=== PATIENT | female | born 1980 | race Caucasian/White ===

== ENCOUNTER 2017-11-06 02:46 | Emergency (ER) | payer SELFPAY ==
[2017-11-06 03:18] LABS: Absolute Monocytes 0.7 K/uL (0.1-1.3); Basophils % 0.5 % (0-1.3); Eosinophils % 1.7 % (0-4.4); Hematocrit 39.9 % (36.0-45.0); Lymphocytes % 22.9 % (15.3-44.8); MCH 29.7 pg (27.0-35.0); MCV 87.2 fL (80-100); MPV 8.8 fL (7.6-11.3); Monocytes % 7.8 % (3.3-12.3); RBC Red Blood Cell Count 4.57 M/uL (3.86-4.86)
[2017-11-06] MEDS ORDERED: LORazepam 2 MG/ML VIAL ONE (03:26)
[2017-11-06 03:27] LABS: Protime INR 0.99
[2017-11-06 03:30] LABS: Glucose Level 121 mg/dL (65-120)
[2017-11-06 03:36] LABS: Albumin 4.3 g/dL (3.2-5.5); Alkaline Phosphatase 73 IU/L (42-121); BUN Blood Urea Nitrogen 16 mg/dL (6-20); Bilirubin Direct 0.2 mg/dL (0-0.2); Bilirubin Total 0.7 mg/dL (0.3-1.2); Protein, Total 7.7 g/dL (6.0-8.3)
[2017-11-06 03:38] LABS: ALT/SGPT 11 IU/L (10-60); AST/SGOT 23 IU/L (10-42); Bicarbonate 20 mEq/L (21-31); Potassium 4.1 mEq/L (3.6-5.0); Sodium Level 140 mEq/L (135-145)
[2017-11-06 03:39] LABS: Alcohol Serum/Plasma < 10 mg/dl; Salicylates Level < 4.0 mg/dl (<30)
[2017-11-06] MEDS ORDERED: ZIPRASIDONE MESYLA 20 MG/VIAL IM ONE (04:00)
[2017-11-06] MEDS ORDERED: WATER FOR INJ,STERILE 10 ML ONE (04:00)
[2017-11-06] MEDS ORDERED: NA CHLORIDE 0.9% 1,000 ML ONE (04:03)
--- NOTE | 2017-11-06 05:01 | EKG ---
Test Date: 2017-11-06 Test Time: 03:19:32 Skin Peeling Machine Operator: ABDULAZIZ MEASUREMENT RESULTS: Intervals: Rate: 101 NV: 144 QRSD: 70 QT: 342 QTc: 443 [place]: P: 66 NV: 144 QRS: 34 T: 29 INTERPRETIVE STATEMENTS: Sinus tachycardia Otherwise normal ECG Compared to ECG 11/13/2012 09:35:37 Sinus rhythm no longer present Electronically Signed On 11-06-17 05:00:45 CDT by Cristian Medeiros
[2017-11-06 05:52] LABS: Barbiturates NEGATIVE; Benzodiazepines POSITIVE; Cocaine NEGATIVE; Opiates NEGATIVE; Phencyclidine NEGATIVE; THC Cannibis NEGATIVE
[2017-11-06 05:57] LABS: METHAMPHETAM POSITIVE
[2017-11-06 06:06] LABS: Urine Blood NEGATIVE (NEG); Urine Glucose NEGATIVE (NEG); Urine Protein NEGATIVE (NEG); Urine Specific Gravity 1.015 (1.005-1.030); Urine pH 5.5 (5.0-7.0)
[2017-11-06] MEDS ORDERED: NICOTINE 21 MG/PAT TD ONE (11:06)
--- NOTE | 2017-11-06 12:13 | ER ---
Nurse's Notes [facility] Name: Dariela Rosario Age: 37 yrs Sex: Female : 1980 Arrival Date: 11/06/2017 Time: 02:56 Bed 17 Private MD: Diagnosis: Hallucinations, unspecified-Auditory Presentation: 11/06 02:57 Presenting complaint: EMS states: "Patient having audible hallucinations, patient bs1 hearing her son and mother calling her for help, muffled/trapped underneath the house, says that everyone is out to get her and is being paranoid, patient has been off of meds.". Transition of care: patient was not received from another setting of care. Onset of symptoms was November 06, 2017. Care prior to arrival: None. 02:57 Method Of Arrival: EMS: [facility] bs1 02:57 Acuity: STEFANI 2 bs1 NET TRAINER: 04:18 LMP N/A - Irregular menses bs1 Historical: - Allergies: 03:09 No Known Allergies; bs1 - Home Meds: 03:09 Risperdal Oral [Active]; Klonopin Oral [Active]; Ambien Oral [Active]; bs1 - PMHx: 03:09 Bipolar disorder; bs1 - PSHx: 03:09 c section; Lumpectomy; bs1 - Immunization history:: Adult Immunizations not up to date. - Social history:: Smoking status: Patient uses tobacco products, smokes one pack cigarettes per day. Patient uses alcohol, street drugs, Methamphetamine (Meth). Screenin:11 Abuse screen: Denies threats or abuse. Nutritional screening: No deficits noted. bs1 Tuberculosis screening: No symptoms or risk factors identified. Fall Risk None identified. Assessment: 03:00 General: Appears uncomfortable, unkempt, Behavior is agitated, anxious, restless. Pain: bs1 Denies pain. Neuro: Level of Consciousness is awake, alert, Oriented to person, place, Administrative Project Coordinator are equal bilaterally Moves all extremities. Gait is steady, Speech is normal. Cardiovascular: Denies chest pain, shortness of breath, Heart tones S1 S2 Capillary refill < 3 seconds Patient's skin is warm and dry. Cardiovascular:. Respiratory: Airway is patent Trachea midline Respiratory effort is even, unlabored, Respiratory pattern is regular, symmetrical. Respiratory: Breath sounds are clear bilaterally. GI: No deficits noted. No signs and/or symptoms were reported involving the gastrointestinal system. : No deficits noted. No signs and/or symptoms were reported regarding the genitourinary system. EENT: No deficits noted. No signs and/or symptoms were reported regarding the EENT system. Derm: No deficits noted. No signs and/or symptoms reported regarding the dermatologic system. Musculoskeletal: Circulation, motion, and sensation intact. Capillary refill < 3 seconds, Range of motion: intact in all extremities. 03:12 Reassessment: Received a verbal order from Dr ham to medicate patient with Ativan 2 IM ao and converted to IV if patient lets us get and IV. Patient has been medicated with Ativan IV. 03:30 Reassessment: Patient is on the phone face timing a "iliana friend", iliana states "Baby bs1 what's going on, I want to speak to the nurse, let me speak to her now.", patient states to the man on the phone "this is the last time you are going to see me because you wont come up here. Patient hung up the phone, nurse then asked patient if she had any thoughts of suicide and if she has a plan to harm herself or others. Patient states "No, I think you guys are going to kill me, I don't want to hurt myself.". 03:45 Reassessment: Patient became very agitated, screaming out, walked out of the room down bs1 the hallway to the Dr Rivera, patient states "I hear my son, I know he's here you are lying to me." Dr Ham gave order to give 20mg Geodon IM x1 now. 04:45 Reassessment: Patient appears in no apparent distress at this time. Patient and/or bs1 family updated on plan of care and expected duration. Pain level reassessed. Patient is alert, oriented x 3, equal unlabored respirations, skin warm/dry/pink. Patient sleeping, boyfriend at bedside. No further needs at this time. 05:45 Reassessment: Patient appears in no apparent distress at this time. Patient and/or bs1 family updated on plan of care and expected duration. Pain level reassessed. Patient is alert, oriented x 3, equal unlabored respirations, skin warm/dry/pink. [facility] at bedside assessing patient. 06:13 Reassessment: Patient appears in no apparent distress at this time. No changes from bs1 previously documented assessment. Patient and/or family updated on plan of care and expected duration. Pain level reassessed. Patient is alert, oriented x 3, equal unlabored respirations, skin warm/dry/pink. 07:00 Reassessment: Pt laying in bed with eyes closed, respirations even and unlabored, no jl7 signs of distress noted at this time. Boyfriend remains at bedside. 07:30 Reassessment: Boyfriend requesting to be notified if pt leaves and reports he will jl7 return after showering. Vick Leach [phone]. 07:40 Reassessment: Pt sat up in bed and requested a breakfast tray. Tray ordered. jl7 08:10 Reassessment: Tray delivered, held outside room at this time, pt laying in bed with jl7 eyes closed, respiration even and unlabored, no signs of distress noted at this time. 09:14 Reassessment: Patient appears in no apparent distress at this time. Patient and/or em family updated on plan of care and expected duration. Pain level reassessed. Patient is alert, oriented x 3, equal unlabored respirations, skin warm/dry/pink. pt resting comfortably in bed. 10:26 Reassessment: Patient appears in no apparent distress at this time. Patient and/or em family updated on plan of care and expected duration. Pain level reassessed. Patient is alert, oriented x 3, equal unlabored respirations, skin warm/dry/pink. pt eating breakfast, tolerated well. 10:45 Reassessment: called report to Wanda Miguel RN at [facility]. em 11:36 Reassessment: Patient appears in no apparent distress at this time. Patient is alert, em oriented x 3, equal unlabored respirations, skin warm/dry/pink. 12:28 Reassessment: pt eating lunch, request medications because she hears her mom next door, em Dr. Orozco notified. Psych: 03:31 Subjective: Patient's mood is sad, angry, irritable, Delusions are denied, bs1 Hallucinations are auditory. Objective: Patient is defensive, irritable, using poor eye contact, restless, suspicious, Speech is rambling, Affect is inappropriate. Interventions: Patient placed in hospital gown. Searched person for dangerous items. Suicide Risk Assessment: Sad Person Scale: Sex of patient: Female: Score 0 points. Age of patient: Score 0 point if patient falls outside of specified age parameters. Depression: Score 0 point if signs of depression are not present. Previous Attempt: Score 0 point if patient has not previously attempted suicide. Substance Abuse: Score 1 point if patient abuses alcohol or drugs. Rational Thinking: Score 1 point if patient is lacking rational thinking. Social Support: Score 1 point if social support is lacking and/or unavailable. Organized Plan: Score 0 if patient did not have an organized plan in place. Relationship: Score 0 point if patient has a spouse or domestic partner. Chronic Sickness: Score 0 point if patient does not have a chronic illness, debilitating, or severe disorder. TOTAL POINTS: If total points are 3-4, proposed clinical action is close follow-up/consider hospitalization. Safety Checks: Personal items have not been removed. Door is open. No visitors are present at this time. Patient uses Patient uses methamphetamines Patient uses tobacco. 07:00 Safety Checks: Personal items have been removed. Door is open. Visitors are present. jl7 07:15 Safety Checks: Personal items have been removed. Door is open. Visitors are present. jl7 07:30 Safety Checks: Personal items have been removed. Door is open. Visitors are present. jl7 07:45 Safety Checks: Personal items have been removed. Door is open. No visitors are present jl7 at this time. 08:00 Safety Checks: Personal items have been removed. Door is open. No visitors are present jl7 at this time. 08:15 Safety Checks: Personal items have been removed. Door is open. No visitors are present jl7 at this time. 08:30 Safety Checks: Personal items have been removed. Door is open. No visitors are present jl7 at this time. 08:45 Safety Checks: Personal items have been removed. Door is open. No visitors are present jl7 at this time. 09:00 Safety Checks: Personal items have been removed. Door is open. No visitors are present jl7 at this time. 09:00 Safety Checks: Personal items have been removed. Door is open. No visitors are present iw at this time. Commitment: Patient will be a voluntary commitment. 09:15 Safety Checks: Personal items have been removed. Door is open. No visitors are present iw at this time. 09:30 Safety Checks: Personal items have been removed. Door is open. No visitors are present iw at this time. 09:45 Safety Checks: Personal items have been removed. Door is open. No visitors are present iw at this time. 10:00 Safety Checks: Personal items have been removed. Door is open. No visitors are present iw at this time. 10:15 Safety Checks: Personal items have been removed. Door is open. No visitors are present iw at this time. 10:30 Safety Checks: Personal items have been removed. Door is open. No visitors are present iw at this time. 10:45 Safety Checks: Personal items have been removed. Door is open. No visitors are present iw at this time. 11:00 Safety Checks: Personal items have been removed. Door is open. No visitors are present iw at this time. 11:15 Safety Checks: Personal items have been removed. Door is open. No visitors are present iw at this time. 11:30 Safety Checks: Personal items have been removed. Door is open. No visitors are present iw at this time. 11:45 Safety Checks: Personal items have been removed. Door is open. No visitors are present em at this time. 12:00 Safety Checks: Personal items have been removed. Door is open. No visitors are present em at this time. 12:15 Safety Checks: Personal items have been removed. Door is open. No visitors are present em at this time. 12:30 Safety Checks: Personal items have been removed. Door is open. No visitors are present em at this time. 12:45 Safety Checks: Personal items have been removed. Door is open. No visitors are present em at this time. 13:00 Safety Checks: Personal items have been removed. Door is open. No visitors are present em at this time. Vital Signs: 02:57 BP 127 / 85; Pulse 104; Resp 18; Temp 97.9(O); Pulse Ox 98% on R/A; Weight 77.11 kg; bs1 Height 5 ft. 2 in. (157.48 cm); Pain 0/10; 05:21 BP 107 / 85; Pulse 87; Resp 18; Pulse Ox 99% on R/A; mt 06:44 BP 104 / 74; Pulse 89; Resp 16; Pulse Ox 97% on R/A; bs1 07:24 BP 105 / 74; Pulse 78; Resp 14 S; Pulse Ox 97% on R/A; jl7 11:20 BP 123 / 73; Pulse 71; Resp 18; Temp 97.5(TE); Pulse Ox 100% on R/A; Pain 0/10; em 02:57 Body Mass Index 31.09 (77.11 kg, 157.48 cm) bs1 ED Course: 02:56 Patient arrived in ED. bs1 02:56 Maik Ham MD is Attending Physician. pkl 02:57 Keyonna Tomas, RN is Primary Nurse. bs1 03:07 Triage completed. bs1 03:12 Arm band placed on left wrist. bs1 03:13 Patient has correct armband on for positive identification. Placed in gown. Bed in low bs1 position. Call light in reach. Side rails up X 1. 03:30 Inserted saline lock: 20 gauge in right antecubital area, using aseptic technique. bs1 07:05 Report given to MENG Puga. bs1 07:09 Primary Nurse role handed off by Keyonna Tomas RN jl7 07:09 Edd Villarreal, MENG is Primary Nurse. jl7 10:26 Huber Waters PA is PHCP. cp 10:52 No provider procedures requiring assistance completed. em 13:14 IV discontinued, intact, bleeding controlled, No redness/swelling at site. Pressure em dressing applied. Administered Medications: 03:11 Drug: Ativan 2 mg {Note: Given IV as ordered By Dr Ham.} Route: IM; Site: Other; ao 09:15 Follow up: Response: No adverse reaction em 03:47 Drug: Geodon 20 mg Route: IM; Site: right deltoid; bs1 04:11 Follow up: Response: No adverse reaction bs1 10:50 Drug: Nicotine 21 mg/24 hr 1 patches {Note: applied to right side of back.} Route: em Transdermal; Site: affected area; 11:57 Follow up: Response: No adverse reaction em Outcome: 12:12 ER care complete, transfer ordered by MD. cp 13:13 Transferred by ground EMS Transfer form completed. em 13:13 Condition: good 13:13 Instructed on the need for transfer, Demonstrated understanding of instructions. 13:17 Patient left the ED. em Signatures: Maik Ham MD MD pkl Donaldo Nixon, SCREEN STRETCHER SCREEN STRETCHER em Yvette Mauricio, RN Huber Davila PA PA cp Ortiz, Alex, RN RN Edd Quiroz RN RN jl7 Otilia Vaughn mt, Brittany RN RN bs1 Corrections: (The following items were deleted from the chart) 03:29 02:57 BP 127 / 85; Pulse 104bpm; Resp 18bpm; Pulse Ox 98% RA; 77.11 kg; Height 5 ft. 2 bs1 in.; BMI: 31.0; Pain 0/10; bs1 04:09 03:31 Suicide Risk Assessment: Sad Person Scale: Sex of patient: Female: Score 0 bs1 points. Age of patient: Score 0 point if patient falls outside of specified age parameters. Rational Thinking: Score 0 point if patient has rational thinking. bs1 04:09 03:31 Subjective: Patient's mood is sad, angry, irritable, Delusions are denied, bs1 Hallucinations are auditory, bs1
--- NOTE | 2017-11-06 12:13 | EDPHYS ---
Physician Documentation [facility] Name: Dariela Rosario Age: 37 yrs Sex: Female : 1980 Arrival Date: 11/06/2017 Time: 02:56 Bed 17 Private MD: ED Physician Maik Donovan HPI: 11/06 03:31 This 37 yrs old Female presents to ER via EMS with complaints of Psych pkl Problem. 03:31 The patient presents to the emergency department with paranoia, psychosis, has pkl experienced auditory hallucinations, Hearing voices that someone is trying to hurt her and her son. 03:31 Onset: The symptoms/episode began/occurred 3 week(s) ago, and became worse today. 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 - Social history:: Smoking status: Patient uses tobacco products, smokes one pack cigarettes per day. Patient uses alcohol, street drugs, Methamphetamine (Meth). ROS: 03:31 Eyes: Negative for injury, pain, redness, and discharge, ENT: Negative for injury, pkl pain, and discharge, Neck: Negative for injury, pain, and swelling, Cardiovascular: Negative for chest pain, palpitations, and edema, Respiratory: Negative for shortness of breath, cough, wheezing, and pleuritic chest pain, Abdomen/GI: Negative for abdominal pain, nausea, vomiting, diarrhea, and constipation, Back: Negative for injury and pain, : Negative for injury, bleeding, discharge, and swelling, MS/Extremity: Negative for injury and deformity, Skin: Negative for injury, rash, and discoloration, Neuro: Negative for headache, weakness, numbness, tingling, and seizure. 03:31 Psych: Positive for auditory hallucinations. Exam: 03:31 Head/Face: Normocephalic, atraumatic. Eyes: Pupils equal round and reactive to light, pkl extra-ocular motions intact. Lids and lashes normal. Conjunctiva and sclera are non-icteric and not injected. Cornea within normal limits. Periorbital areas with no swelling, redness, or edema. ENT: Nares patent. No nasal discharge, no septal abnormalities noted. Tympanic membranes are normal and external auditory canals are clear. Oropharynx with no redness, swelling, or masses, exudates, or evidence of obstruction, uvula midline. Mucous membranes moist. Neck: Trachea midline, no thyromegaly or masses palpated, and no cervical lymphadenopathy. Supple, full range of motion without nuchal rigidity, or vertebral point tenderness. No Meningismus. Chest/axilla: Normal chest wall appearance and motion. Nontender with no deformity. No lesions are appreciated. Cardiovascular: Regular rate and rhythm with a normal S1 and S2. No gallops, murmurs, or rubs. Normal PMI, no JVD. No pulse deficits. Respiratory: Lungs have equal breath sounds bilaterally, clear to auscultation and percussion. No rales, rhonchi or wheezes noted. No increased work of breathing, no retractions or nasal flaring. Abdomen/GI: Soft, non-tender, with normal bowel sounds. No distension or tympany. No guarding or rebound. No evidence of tenderness throughout. Back: No spinal tenderness. No costovertebral tenderness. Full range of motion. Skin: Warm, dry with normal turgor. Normal color with no rashes, no lesions, and no evidence of cellulitis. MS/ Extremity: Pulses equal, no cyanosis. Neurovascular intact. Full, normal range of motion. Neuro: Awake and alert, GCS 15, oriented to person, place, time, and situation. Cranial nerves II-XII grossly intact. Motor strength 5/5 in all extremities. Sensory grossly intact. Cerebellar exam normal. Normal gait. 03:31 Psych: Behavior/mood is anxious, depressed, Affect is animated, Delusions/hallucinations are present and described as hearing voices that someone is trying to hurt her and her son. Vital Signs: 02:57 BP 127 / 85; Pulse 104; Resp 18; Temp 97.9(O); Pulse Ox 98% on R/A; Weight 77.11 kg; bs1 Height 5 ft. 2 in. (157.48 cm); Pain 0/10; 05:21 BP 107 / 85; Pulse 87; Resp 18; Pulse Ox 99% on R/A; mt 06:44 BP 104 / 74; Pulse 89; Resp 16; Pulse Ox 97% on R/A; bs1 07:24 BP 105 / 74; Pulse 78; Resp 14 S; Pulse Ox 97% on R/A; jl7 11:20 BP 123 / 73; Pulse 71; Resp 18; Temp 97.5(TE); Pulse Ox 100% on R/A; Pain 0/10; em 02:57 Body Mass Index 31.09 (77.11 kg, 157.48 cm) bs1 MDM: 02:57 Patient medically screened. pkl 05:53 Data reviewed: vital signs, nurses notes, lab test result(s), EKG. pkl 11/06 03:05 Order name: Acetaminophen; Complete Time: 03:53 ao 11/06 03:05 Order name: Basic Metabolic Panel; Complete Time: 03:53 ao 11/06 03:05 Order name: CBC with Diff; Complete Time: 03:53 ao 11/06 03:05 Order name: ETOH Level; Complete Time: 03:53 ao 11/06 03:05 Order name: Hepatic Function; Complete Time: 03:53 ao 11/06 03:05 Order name: PT-INR; Complete Time: 03:53 ao 11/06 03:05 Order name: Ptt, Activated; Complete Time: 03:53 ao 11/06 03:05 Order name: Salicylate; Complete Time: 03:53 ao 11/06 03:05 Order name: Urine Drug Screen; Complete Time: 05:58 ao 11/06 05:43 Order name: Urine Dipstick--Ancillary (enter results); Complete Time: 06:38 em1 11/06 05:43 Order name: Urine --Ancillary (enter results); Complete Time: 06:38 em1 11/06 03:05 Order name: EKG; Complete Time: 03:05 ao 11/06 03:05 Order name: EKG - Nurse/Tech; Complete Time: 03:17 ao 11/06 03:05 Order name: IV Saline Lock; Complete Time: 03:11 ao 11/06 03:05 Order name: Labs collected and sent; Complete Time: 03:11 ao 11/06 03:05 Order name: Urine Dipstick-Ancillary (obtain specimen); Complete Time: 05:41 ao 11/06 07:42 Order name: Diet Regular; Complete Time: 07:42 jl7 11/06 11:58 Order name: Diet Regular; Complete Time: 11:58 em Administered Medications: 03:11 Drug: Ativan 2 mg {Note: Given IV as ordered By Dr Donovan.} Route: IM; Site: Other; ao 09:15 Follow up: Response: No adverse reaction em 03:47 Drug: Geodon 20 mg Route: IM; Site: right deltoid; bs1 04:11 Follow up: Response: No adverse reaction bs1 10:50 Drug: Nicotine 21 mg/24 hr 1 patches {Note: applied to right side of back.} Route: em Transdermal; Site: affected area; 11:57 Follow up: Response: No adverse reaction em Disposition: 11/06/17 12:12 Transfer ordered to [facility]. Diagnosis is Hallucinations, unspecified - Auditory. - Reason for transfer: Higher level of care. - Accepting physician is DR Donovan. - Condition is Stable. - Problem is new. - Symptoms have improved. Signatures: Dispatcher [employer] Maik Moncada MD MD pkl Donaldo Nixon, CONVERSION DEVELOPER CONVERSION DEVELOPER em Huber Waters PA PA cp Ortiz, Alex, RN RN ao Keyonna Tomas RN RN bs1 Corrections: (The following items were deleted from the chart) 03:12 03:05 Urine Dipstick-Ancillary ordered. ao ao 03:35 03:31 Onset: The symptoms/episode began/occurred today, 3 week(s) ago, and became worse pkl pkl
== END 2017-11-06 13:17 ==
LOC: ER 02:46
DX: R44.0 Auditory hallucinations (principal); F31.9 Bipolar disorder, unspecified; F17.210 Nicotine dependence, cigarettes, uncomplicated
CPT/HCPCS: 36415; 80048; 80076; 80307; 80320; 80329; 81003; 81025; 85025; 85610; 85730; 93005; 96372; 99285; J3486; J7030

== ENCOUNTER 2018-06-08 03:56 | Emergency (ER) | payer SELFPAY ==
--- OUTSIDE RECORDS SUMMARY | 2018-06-08 03:58 | XMS REPORT ---
:1980 [facility] [address] [place] [address] Dr. Ha [address] [place] [id number] Care Team Providers Name Role Phone PRABHAKAR PAZ Primary Care Provider Unavailable PRABHAKAR PAZ M.D. Unavailable Unavailable Problems This patient has no known problems. Allergies, Adverse Reactions, Alerts This patient has no known allergies or adverse reactions. Medications This patient has no known medications. Results Test Description Test Time Test Comments Text Results Atomic Results Result Comments RPR, Qual 2017-11-10 05:42:00 Test Item Value Reference Range Comments RPR (test code=RPR) Non-Reactive Non-Reactive HIV [id number] 11:55:00 Test Item Value Reference Range Comments HIV 1/2 Antibody (test Non-Reactive Non-Reactive HIV1/2 Antibody screen result code=HIV1/2AB) indicates the absence of HIV1 and [id number].However, A Non-Reactive screen result does not rule out exposure orinfection. If an acute infection is suspected, HIV RNA Quantitative is recommended. P24 Antigen (test Non-Reactive Non-Reactive P24 Ag screen result indicates code=P24) the absence of P24 antigen, which is anindicator of HIV-1 acute infection.However, A Non-Reactive screen does not rule out exposure or infection.If acute HIV-1 is suspected, HIV RNA Quantitative is recommended.
--- NOTE | 2018-06-08 04:19 | ER ---
Nurse's Notes [facility] Name: Dariela Rosario Age: 37 yrs Sex: Female : 1980 Arrival Date: 06/08/2018 Time: 03:57 Bed 17 Private MD: Diagnosis: Assessment: 06/08 04:15 General: When calling the pt back from the lobby, pt stated " we are just going to jb4 leave. This is a waste of time we are just going to leave.". ED Course: 03:57 Patient arrived in ED. ds1 04:00 Huber Orozco MD is Attending Physician. danae 04:12 pt called to ER17, pt stated "wait" young man with pt came up to this nurse asking how ak1 long the process would take and if "can you even help her here" young man stated he wanted "meds to knock her out and make her sleep." pt was asked if she has suicidal ideation or homicidal ideations and stated "no."pt continued to sit in ER lobby and not come to ER17. pt chart handed off to [facility] in the lobby. Patient's name was called from ER lobby. 04:15 Ward Roe, RN is Primary Nurse. jb4 Administered Medications: 05:40 Not Given (Patient Eloped): NS 0.9% 500 ml IV at bolus once jb4 Outcome: 04:18 Patient left the ED. jb4 Signatures: Huber Orozco MD MD cha Sanford, Demi ds1 Sobia Hernandez RN RN ak1 Ward Roe, RN RN jb4
== END 2018-06-08 04:18 | disposition left against medical advice (07) ==
LOC: ER 03:56
DX: Z53.21 Procedure and treatment not carried out due to patient leaving prior to being seen by health care provider (principal)

== ENCOUNTER 2018-06-09 20:07 | Emergency (ER) | payer SELFPAY ==
--- OUTSIDE RECORDS SUMMARY | 2018-06-09 20:09 | XMS REPORT ---
:1980 [facility] [address] [place] [address] Dr. Ha [address] [place] [id number] Care Team Providers Name Role Phone PRABHAKAR [...] Comments RPR (test code=RPR) Non-Reactive Non-Reactive HIV [id number] 11:55:00 Test Item Value Reference Range Comments HIV 1/2 Antibody (test Non-Reactive Non-Reactive HIV1/2 Antibody screen result code=HIV1/2AB) indicates the absence of HIV1 and [id number].However, A Non-Reactive screen result does not rule [...]
--- NOTE | 2018-06-09 21:04 | ER ---
Nurse's Notes [facility] Name: Dariela Rosario Age: 37 yrs Sex: Female : 1980 Arrival Date: 06/09/2018 Time: 20:13 Bed 19 Private MD: Diagnosis: Schizophrenia, unspecified Presentation: 06/09 20:05 Presenting complaint: EMS states: auditory hallucinations that the patient has been cc3 hearing voices underneath her car while on her way home from [place]. EMS states that patient said she took Barbiturates and Methamphetamine today afternoon. Transition of care: patient was not received from another setting of care. Onset of symptoms was June 09, 2018. Risk Assessment: Do you want to hurt yourself or someone else? Patient reports no desire to harm self or others. Initial Sepsis Screen: Does the patient meet any 2 criteria? No. Patient's initial sepsis screen is negative. Does the patient have a suspected source of infection? No. Patient's initial sepsis screen is negative. Care prior to arrival: None. 20:05 Method Of Arrival: EMS: [facility] cc3 20:05 Acuity: STEFANI 3 cc3 Triage Assessment: 20:05 General: Appears in no apparent distress. comfortable, Behavior is calm, cooperative, cc3 appropriate for age. Pain: Denies pain. EENT: Parent/caregiver reports the patient having EMS states patient's having auditory hallucinations. Neuro: Level of Consciousness is awake, alert, obeys commands, Oriented to person, place, time, situation, Appropriate for age. Cardiovascular: Denies chest pain. Respiratory: Airway is patent Respiratory effort is even, unlabored, Respiratory pattern is regular, symmetrical. GI: Abdomen is round non-distended. : No signs and/or symptoms were reported regarding the genitourinary system. Derm: No signs and/or symptoms reported regarding the dermatologic system. Musculoskeletal: Circulation, motion, and sensation intact. Range of motion: intact in all extremities. 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 - Social history:: Smoking status: Patient uses tobacco products, smokes one pack cigarettes per day. - Ebola Screening: : No symptoms or risks identified at this time. Screenin:05 Abuse screen: Denies threats or abuse. Denies injuries from another. Nutritional cc3 screening: No deficits noted. Tuberculosis screening: No symptoms or risk factors identified. Fall Risk Ambulatory Aid- None/Bed Rest/Nurse Assist (0 pts). Gait- Normal/Bed Rest/Wheelchair (0 pts) Mental Status- Oriented to own ability (0 pts). Assessment: 20:45 Reassessment: Patient refused bloodworks and urine exam though risks and consequences cc3 explained, informed Dr. Rahman. Patient wants to leave and signed AMA form, Dr. Rahman and charge nurse Ellen informed and aware. 21:02 Reassessment: Patient refused to get her blood drawn and give and urine sample. Patient ao stated that she does not trust medical staff and information would be release to the mechanical maintenance technician. Patient stated she know what is in her system and she is afraid more substance would show in her system if information get to police. Dr Rahman was notified and stated patient can go AMA. Patient agree to sign AMA form then she called a friend to come and pick her up then patient left ED. Vital Signs: 20:05 BP 140 / 99; Pulse 109; Resp 20; Temp 98.6(O); Pulse Ox 98% on R/A; Weight 81.65 kg; cc3 Height 5 ft. 2 in. (157.48 cm); Pain 0/10; 20:05 Body Mass Index 32.92 (81.65 kg, 157.48 cm) cc3 ED Course: 20:05 Arm band placed on right wrist. cc3 20:05 Patient has correct armband on for positive identification. Bed in low position. Side cc3 rails up X2. 20:13 Patient arrived in ED. cc3 20:15 Andrei Rahman MD is Attending Physician. tw4 20:44 Triage completed. cc3 20:50 No provider procedures requiring assistance completed. Patient did not have IV access cc3 during this emergency room visit. Administered Medications: No medications were administered Outcome: 20:50 AMA AMA form signed cc3 20:50 Condition: stable 20:50 Discharge instructions given to patient, Patient opted to leave AMA, form signed. 21:11 Patient left the ED. cc3 Signatures: Dante Hickman, RN Andrei Pinzon MD MD tw4 Marilou Olmedo cc3 Corrections: (The following items were deleted from the chart) 21:16 20:05 Presenting complaint: EMS states: auditory hallucinations that the patient has cc3 been hearing voices underneath her car while on her way home from [place]. cc3
--- NOTE | 2018-06-09 21:05 | EDPHYS ---
Physician Documentation [facility] Name: Dariela Rosario Age: 37 yrs Sex: Female : 1980 Arrival Date: 06/09/2018 Time: 20:13 Bed 19 Private MD: ED Physician Andrei Rahman HPI: 06/09 20:59 This 37 yrs old Female presents to ER via EMS with complaints of Auditory tw4 Hallucinations. 20:59 The patient presents to the emergency department with psychosis, has experienced tw4 auditory hallucinations, hearing her daughters voice?. Onset: The symptoms/episode began/occurred today. Past psychiatric history: Prior diagnosis: depression, schizophrenia. Associated signs and symptoms: The patient has no apparent associated signs or symptoms. Severity of symptoms: At their worst the symptoms were moderate in the emergency department the symptoms are unchanged. The patient has not experienced similar symptoms in the past. 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 - Social history:: Smoking status: Patient uses tobacco products, smokes one pack cigarettes per day. - Ebola Screening: : No symptoms or risks identified at this time. ROS: 20:59 Constitutional: Negative for fever, chills, and weight loss, Eyes: Negative for injury, tw4 pain, redness, and discharge, Cardiovascular: Negative for chest pain, palpitations, and edema, Respiratory: Negative for shortness of breath, cough, wheezing, and pleuritic chest pain, Abdomen/GI: Negative for abdominal pain, nausea, vomiting, diarrhea, and constipation, Back: Negative for injury and pain, MS/Extremity: Negative for injury and deformity, Skin: Negative for injury, rash, and discoloration, Neuro: Negative for headache, weakness, numbness, tingling, and seizure. Exam: 20:59 Constitutional: This is a well developed, well nourished patient who is awake, alert, tw4 and in no acute distress. Head/Face: Normocephalic, atraumatic. Cardiovascular: Regular rate and rhythm with a normal S1 and S2. No gallops, murmurs, or rubs. Normal PMI, no JVD. No pulse deficits. Respiratory: Lungs have equal breath sounds bilaterally, clear to auscultation and percussion. No rales, rhonchi or wheezes noted. No increased work of breathing, no retractions or nasal flaring. Abdomen/GI: Soft, non-tender, with normal bowel sounds. No distension or tympany. No guarding or rebound. No evidence of tenderness throughout. Back: No spinal tenderness. No costovertebral tenderness. Full range of motion. MS/ Extremity: Pulses equal, no cyanosis. Neurovascular intact. Full, normal range of motion. Neuro: Awake and alert, GCS 15, oriented to person, place, time, and situation. Cranial nerves II-XII grossly intact. Motor strength 5/5 in all extremities. Sensory grossly intact. Cerebellar exam normal. Normal gait. 20:59 Psych: Behavior/mood is pleasant, Affect is animated, Oriented to person, place, time, Patient has no thoughts/intents to harm self or others. Judgement / Insight is normal. Delusions/hallucinations are not present. Vital Signs: 20:05 BP 140 / 99; Pulse 109; Resp 20; Temp 98.6(O); Pulse Ox 98% on R/A; Weight 81.65 kg; cc3 Height 5 ft. 2 in. (157.48 cm); Pain 0/10; 20:05 Body Mass Index 32.92 (81.65 kg, 157.48 cm) cc3 MDM: 20:15 Patient medically screened. tw4 20:59 Differential diagnosis: drug withdrawal. acute psychotic break, depression. Data tw4 reviewed: vital signs, nurses notes. Counseling: I had a detailed discussion with the patient and/or guardian regarding: the historical points, exam findings, and any diagnostic results supporting the discharge/admit diagnosis. Medical screen evaluation completed. EMTALA emergency medical condition absent. Administered Medications: No medications were administered Disposition: 06/09/18 21:04 Patient has left against medical advice. Impression: Schizophrenia, unspecified. - Patients states they are going to Home. - Condition is Stable. - Discharge Instructions: Schizophrenia. Follow up: Private Physician; When: Upon discharge from the Emergency Department; Reason: If symptoms return, Further diagnostic work-up, Recheck today's complaints, Continuance of care. - Problem is new. - Symptoms are unchanged. Signatures: Dispatcher [employer] Andrei Henning MD MD tw4 Derekfunmilayo Marilou cc3 Corrections: (The following items were deleted from the chart) 20:32 20:16 IV Saline Lock ordered. [facility] ao 21:09 20:16 Urine Test ordered. [facility] cc3 21:09 20:16 Urine Dipstick-Ancillary ordered. [facility] cc3 21:10 20:16 Labs collected and sent ordered. [facility] cc3 21:11 21:04 06/09/2018 21:04 Patients has left against medical advice. Impression: cc3 Schizophrenia, unspecified. Patient states they are going to Home. Condition is Stable. Follow up: Private Physician; When: Upon discharge from the Emergency Department; Reason: If symptoms return, Further diagnostic work-up, Recheck today's complaints, Continuance of care. Problem is new. Symptoms are unchanged. 4
== END 2018-06-09 21:11 | disposition left against medical advice (07) ==
LOC: ER 20:07
DX: F20.9 Schizophrenia, unspecified (principal); F17.210 Nicotine dependence, cigarettes, uncomplicated
CPT/HCPCS: 99283